=== PATIENT | male | born 1985 | race Caucasian/White ===

== ENCOUNTER 2021-03-29 14:18 | Emergency (ER) | payer MEDICAID ==
[2021-03-29] MEDS ORDERED: Sodium Chloride 0.9% 2.5 ML Syringe FLUSH PRN (14:34)
[2021-03-29] MEDS ORDERED: Ondansetron 4 MG/2 ML SDV IVPUSH ONE (14:34)
[2021-03-29] MEDS ORDERED: Sodium Chloride 0.9% 10 ML Syringe FLUSH PRN (14:34)
[2021-03-29] MEDS ORDERED: Sodium Chloride 0.9% 1,000 ML IV ONE ×2 (14:34→16:45)
--- NOTE | 2021-03-29 14:34 | EDM.PDOC ---
ED HPI GENERAL MEDICAL PROBLEM - General Chief Complaint: Diabetic Complaint Stated Complaint: HIGH BLOOD SUGAR Time Seen by Provider: 03/29/21 14:19 Source of Information: Reports: Patient History Limitations: Reports: No Limitations - History of Present Illness INITIAL COMMENTS - FREE TEXT/NARRATIVE: HISTORY AND PHYSICAL: History of present illness: Patient is a 35-year-old male who presents to the emergency room reporting his blood sugar is high. History of Type II Diabetes. Patient states yesterday he did not take his evening dose of Lantus, he forgot. He woke up with his blood sugar being elevated and did not take any correcting dose. He states he had a doctor's appointment at 10:15 with his primary care due to having chronic hip pain. They did do basic lab work today. He received a phone call this afternoon stating his blood sugar was 780. They recommended he come to the emergency room for evaluation. He has not had any insulin today, although states he does typically use insulin daily per sliding scale with meals. Patient states he has had generalized abdominal upset with mild nausea. He has had chronic hip pain over the past several months, has been seeing Dr. Branch and Dr. Byers for this. Currently on Lyrica for this pain. No new injury, trauma or falls. Denies any weakness or numbness of the extremity. Patient denies any fever, chills, headache, change in vision, syncope or near syncope. Denies any chest pain, back pain, shortness of breath or cough. Denies any vomiting, diarrhea, constipation or dysuria. Has not noted any blood in urine or stool. Patient has been eating and drinking appropriately. No recent travel or sick contacts. Review of systems: As per history of present illness and below otherwise all systems reviewed and negative. Past medical history: As per history of present illness and as reviewed below otherwise noncontributory. Surgical history: As per history of present illness and as reviewed below otherwise noncontributory. Social history: See social history for further information Family history: As per history of present illness and as reviewed below otherwise noncontributory. Physical exam: General: Well developed and well nourished. Alert and orientated x 3. Nontoxic in appearance and in no acute distress. Vital signs are stable and have been reviewed by me. Nursing notes were reviewed. HEENT: Atraumatic, normocephalic, pupils equal and reactive bilaterally, negative for conjunctival pallor or scleral icterus, mucous membranes moist, trachea midline. No drooling or trismus noted. No meningeal signs. No hot potato voice noted. Lungs: Clear to auscultation bilaterally. No wheezes, rales, or rhonchi. Chest nontender. Normal work of breathing, no accessory muscles used. Heart: S1S2, regular rate and rhythm without overt murmur, gallops, or rubs. No JVD. No peripheral edema Abdomen: Soft, nondistended, nontender. Normoactive bowel sounds. Negative for masses or costovertebral tenderness. Skin: Intact, warm, dry. No lesions or rashes noted. Hematologic: No petechiae or purpra. Mucosa appropriate color and normal nail bed color and refill. Extremities: Atraumatic, moves all extremities per self without difficulty or deficits, left hip pain with ROM and palpation/weight bearing. He is negative for cords or calf pain. Strong pedal pulses bilaterally. Neurovascular unr emarkable. Neuro: Awake, alert, oriented. Cranial nerves II through XII unremarkable. Cerebellum unremarkable. Motor and sensory unremarkable throughout. Exam nonfocal. Psychiatric: Mood and affect are appropriate. Normal thought process. Answering questions appropriately. Please note that the patient was seen and evaluated during the 2019 SARS-CoV-2 novel coronavirus pandemic period. Community viral transmission is ongoing at time of this encounter and the emergency department is operating under pandemic response procedures. Medical Decision Making: Patient states he has had labs done this morning at his appointment at [facility]. These lab results are not viewable. States his hip pain is chronic, denies any new injury, trauma or falls. Do not feel any need for imaging at this time. We will give him temporary pain management here. I will assess for DKA with repeat labs today. Patients blood sugar is elevated at 591, with anion gap of 17. Will have to correct blood glucose with insulin. I have talked with the patient about today's findings, in addition to providing specific details for plan of care. Reassessment at the time of disposition demonstrates that the patient is in no acute distress. He is requesting additional Morphine for his hip pain. Initially had spoke with Dr. Paiz about this patient. Patient is well and nontoxic appearing. We did discuss admission, although if the patient was admitted with an insulin drip he would have to be transferred as there is no beds available. We have called surrounding communities throughout the stay there are no beds available in [place], [place] or [place]. As mentioned previously he has no significant complaints and he had not taken his medication in the past 24 hours. Blood sugar has gone from 591 down to 4 oh with just 8 units of insulin subcu. Dr. Paiz does suggest repeating a BMP after giving the patient additional insulin and assessing if he actually needs to be admitted. Patient was made aware of this. Patient's anion gap is now 11. His last blood sugar was 376. We did discuss giving his Levemir here, we do have Lantus available. He would like to take this when he gets home. He is wanting pain medication for his left hip pain. He did see his primary care provider today for this, I do not feel comfortable adding to this regiment as he is currently on Lyrica and has been following with PCP. We did review all diagnostics and signs and symptoms that would prompt him to return to the emergency room. His vital signs are stable. Reevaluation shows no acute distress and he is stable for discharge. Diagnostics: CBC, CMP, Ketones, UA, COVID, blood glucose Therapeutics: NS, Insulin SubQ/Drip Impression: Mild DKA Left hip pain, acute on chronic Medication non-compliant Plan: 1. Today you have been evaluated on an emergent basis. You were given corrective insulin to help with your blood sugars. When you get home please take your long-acting insulin and monitor your blood sugars closely. Please do not forget to use your sliding scale intake the short acting insulin as you typically do. 2. Tylenol and/or ibuprofen as needed for pain management. Please follow with Dr. Byers at [facility] for your chronic hip pain. 3. If your symptoms should worsen or new symptoms develop your is welcome to return to the emergency room for reevaluation. Definitive disposition and diagnosis as appropriate pending reevaluation and review of above. Left Hip Pain Score (Numeric/FACES): 7 - Related Data Allergies Allergy/AdvReac Type Severity Reaction Status Date / Time No Known Allergies Allergy Verified 03/29/21 14:36 Home Meds: Home Meds Insulin Detemir [Levemir] 70 unit SUBCUT BEDTIME 03/29/21 [History] Pregabalin [Lyrica] 150 mg PO TID 03/29/21 [History] atorvaSTATin [Lipitor] 10 mg PO DAILY 03/29/21 [History] lisinopriL [Lisinopril] 5 mg PO DAILY 03/29/21 [History] ED ROS GENERAL - Review of Systems Review Of Systems: Comprehensive ROS is negative, except as noted in HPI. ED EXAM GENERAL NO PERIP PULSE - Physical Exam Exam: See Below (See dictation) Course - Vital Signs Last Recorded V/S: Last Vital Signs Temp 98.1 F 03/29/21 14:31 Pulse 108 H 03/29/21 17:43 Resp 16 03/29/21 17:43 BP 154/91 H 03/29/21 17:43 Pulse Ox 97 03/29/21 17:43 - Orders/Labs/Meds Orders: Active Orders 24 hr Category Date Time Status Blood Glucose Check, Bedside [RC] ONETIME Care 03/29/21 14:49 Active Glucose [Blood Glucose Check, Bedside] [RC] ONETIME Care 03/29/21 14:27 Active Glucose [Blood Glucose Check, Bedside] [RC] ONETIME Care 03/29/21 17:48 Active Dextrose 50% in Water Med 03/29/21 14:49 Active 50 ml IVPUSH ASDIRECTED PRN Dextrose 50% in Water Med 03/29/21 16:52 Active 50 ml IVPUSH ASDIRECTED PRN Glucagon,Human Recombinant [GlucaGen] Med 03/29/21 14:49 Active 1 mg IM ASDIRECTED PRN Glucagon,Human Recombinant [GlucaGen] Med 03/29/21 16:52 Active 1 mg IM ASDIRECTED PRN Sodium Chloride 0.9% [Normal Saline] 1,000 ml Med 03/29/21 16:45 Active IV .Bolus Sodium Chloride 0.9% [Saline Flush] Med 03/29/21 14:34 Active 10 ml FLUSH ASDIRECTED PRN Sodium Chloride 0.9% [Saline Flush] Med 03/29/21 14:34 Active 2.5 ml FLUSH ASDIRECTED PRN Saline Lock Insert [OM.PC] Stat Oth 03/29/21 14:34 Ordered Medication Orders Dextrose/Water (50% Dextrose In Water 50 Ml Syringe) 50 ml IVPUSH ASDIRECTED PRN PRN Reason: Hypoglycemia Dextrose/Water (50% Dextrose In Water 50 Ml Syringe) 50 ml IVPUSH ASDIRECTED PRN PRN Reason: Hypoglycemia Glucagon (Glucagon,Human Recombinant 1 Mg Vial) 1 mg IM ASDIRECTED PRN PRN Reason: Hypoglycemia Glucagon (Glucagon,Human Recombinant 1 Mg Vial) 1 mg IM ASDIRECTED PRN PRN Reason: Hypoglycemia Sodium Chloride (Normal Saline) 1,000 mls @ 250 mls/hr IV .Bolus ONE Stop: 03/29/21 20:44 Last Admin: 03/29/21 17:11 Dose: 250 mls/hr Documented by: ALIA Sodium Chloride (Sodium Chloride 0.9% 10 Ml Syringe) 10 ml FLUSH ASDIRECTED PRN PRN Reason: Keep Vein Open Last Admin: 03/29/21 14:39 Dose: 10 ml Documented by: ROSEANNE Sodium Chloride (Sodium Chloride 0.9% 2.5 Ml Syringe) 2.5 ml FLUSH ASDIRECTED PRN PRN Reason: Keep Vein Open Last Admin: 03/29/21 14:39 Dose: 2.5 ml Documented by: ROSEANNE Labs: Laboratory Tests 03/29/21 03/29/21 03/29/21 Range/Units 14:44 14:44 14:44 WBC 7.09 (4.0-11.0) K/uL RBC 5.35 (4.50-5.90) M/uL Hgb 16.5 (13.0-17.0) g/dL Hct 48.1 (38.0-50.0) % MCV 89.9 (80.0-98.0) fL MCH 30.8 (27.0-32.0) pg MCHC 34.3 (31.0-37.0) g/dL RDW Std Deviation 42.6 (28.0-62.0) fl RDW Coeff of Lilian 13 (11.0-15.0) % Plt Count 209 (150-400) K/uL MPV 11.80 (7.40-12.00) fL Neut % (Auto) 66.6 (48.0-80.0) % Lymph % (Auto) 25.0 (16.0-40.0) % [place] % (Auto) 6.6 (0.0-15.0) % Eos % (Auto) 1.4 (0.0-7.0) % Baso % (Auto) 0.4 (0.0-1.5) % Neut # (Auto) 4.7 (1.4-5.7) K/uL Lymph # (Auto) 1.8 (0.6-2.4) K/uL [place] # (Auto) 0.5 (0.0-0.8) K/uL Eos # (Auto) 0.1 (0.0-0.7) K/uL Baso # (Auto) 0.0 (0.0-0.1) K/uL Nucleated RBC % 0.0 /100WBC Nucleated RBCs # 0 K/uL VBG pH (7.31-7.41) VBG pCO2 (41-51) mmHG VBG pO2 mmHG VBG HCO3 (23-28) mEq/L VBG Total CO2 (24-29) mmol/L VBG Base Excess (-2.0-3.0) Sodium 134 L (136-148) mmol/L Potassium 5.0 (3.5-5.1) mmol/L Chloride 96 L (98-107) mmol/L Carbon Dioxide 20.3 L (21.0-32.0) mmol/L BUN 25 H (7.0-18.0) mg/dL Creatinine 1.3 (0.8-1.3) mg/dL Est Cr Clr Drug Dosing 83.67 mL/min Estimated GFR (MDRD) > 60.0 ml/min Glucose 591 H* (74-106) mg/dL POC Glucose (70-99) mg/dL Calcium 9.2 (8.5-10.1) mg/dL Total Bilirubin 0.3 (0.2-1.0) mg/dL AST 20 (15-37) IU/L ALT 40 (14-63) IU/L Alkaline Phosphatase 156 H (46-116) U/L Total Protein 7.8 (6.4-8.2) g/dL Albumin 3.6 (3.4-5.0) g/dL Globulin 4.2 H (2.6-4.0) g/dL Albumin/Globulin Ratio 0.9 (0.9-1.6) Lipase 214 (73-393) U/L Urine Color Urine Appearance Urine pH (5.0-8.0) Ur Specific Whick (1.001-1.035) Urine Protein (NEGATIVE) mg/dL Urine Glucose (UA) (NEGATIVE) mg/dL Urine Ketones (NEGATIVE) mg/dL Urine Occult Blood (NEGATIVE) Urine Nitrite (NEGATIVE) Urine Bilirubin (NEGATIVE) Urine Urobilinogen (<2.0) EU/dL Ur Leukocyte Esterase (NEGATIVE) Urine RBC (0-2/HPF) Urine WBC (0-5/HPF) Ur Epithelial Cells (NONE-FEW) Urine Bacteria (NEGATIVE) Ketones NEGATIVE (NEG) SARS-CoV-2 RNA (MILAGROS) (NEGATIVE) 03/29/21 03/29/21 03/29/21 Range/Units 14:44 14:53 15:12 WBC (4.0-11.0) K/uL RBC (4.50-5.90) M/uL Hgb (13.0-17.0) g/dL Hct (38.0-50.0) % MCV (80.0-98.0) fL MCH (27.0-32.0) pg MCHC (31.0-37.0) g/dL RDW Std Deviation (28.0-62.0) fl RDW Coeff of Lilian (11.0-15.0) % Plt Count (150-400) K/uL MPV (7.40-12.00) fL Neut % (Auto) (48.0-80.0) % Lymph % (Auto) (16.0-40.0) % [place] % (Auto) (0.0-15.0) % Eos % (Auto) (0.0-7.0) % Baso % (Auto) (0.0-1.5) % Neut # (Auto) (1.4-5.7) K/uL Lymph # (Auto) (0.6-2.4) K/uL [place] # (Auto) (0.0-0.8) K/uL Eos # (Auto) (0.0-0.7) K/uL Baso # (Auto) (0.0-0.1) K/uL Nucleated RBC % /100WBC Nucleated RBCs # K/uL VBG pH 7.40 (7.31-7.41) VBG pCO2 33 L (41-51) mmHG VBG pO2 58 mmHG VBG HCO3 21 L (23-28) mEq/L VBG Total CO2 18 L (24-29) mmol/L VBG Base Excess -3.4 L (-2.0-3.0) Sodium (136-148) mmol/L Potassium (3.5-5.1) mmol/L Chloride (98-107) mmol/L Carbon Dioxide (21.0-32.0) mmol/L BUN (7.0-18.0) mg/dL Creatinine (0.8-1.3) mg/dL Est Cr Clr Drug Dosing mL/min Estimated GFR (MDRD) ml/min Glucose (74-106) mg/dL POC Glucose (70-99) mg/dL Calcium (8.5-10.1) mg/dL Total Bilirubin (0.2-1.0) mg/dL AST (15-37) IU/L ALT (14-63) IU/L Alkaline Phosphatase (46-116) U/L Total Protein (6.4-8.2) g/dL Albumin (3.4-5.0) g/dL Globulin (2.6-4.0) g/dL Albumin/Globulin Ratio (0.9-1.6) Lipase (73-393) U/L Urine Color YELLOW Urine Appearance CLEAR Urine pH 6.0 (5.0-8.0) Ur Specific Whick 1.010 (1.001-1.035) Urine Protein NEGATIVE (NEGATIVE) mg/dL Urine Glucose (UA) >=1000 (NEGATIVE) mg/dL Urine Ketones NEGATIVE (NEGATIVE) mg/dL Urine Occult Blood NEGATIVE (NEGATIVE) Urine Nitrite NEGATIVE (NEGATIVE) Urine Bilirubin NEGATIVE (NEGATIVE) Urine Urobilinogen 0.2 (<2.0) EU/dL Ur Leukocyte Esterase NEGATIVE (NEGATIVE) Urine RBC 0-1 (0-2/HPF) Urine WBC 0-1 (0-5/HPF) Ur Epithelial Cells RARE (NONE-FEW) Urine Bacteria RARE (NEGATIVE) Ketones (NEG) SARS-CoV-2 RNA (MILAGROS) NEGATIVE (NEGATIVE) 03/29/21 03/29/21 03/29/21 Range/Units 16:45 17:46 18:30 WBC (4.0-11.0) K/uL RBC (4.50-5.90) M/uL Hgb (13.0-17.0) g/dL Hct (38.0-50.0) % MCV (80.0-98.0) fL MCH (27.0-32.0) pg MCHC (31.0-37.0) g/dL RDW Std Deviation (28.0-62.0) fl RDW Coeff of Lilian (11.0-15.0) % Plt Count (150-400) K/uL MPV (7.40-12.00) fL Neut % (Auto) (48.0-80.0) % Lymph % (Auto) (16.0-40.0) % [place] % (Auto) (0.0-15.0) % Eos % (Auto) (0.0-7.0) % Baso % (Auto) (0.0-1.5) % Neut # (Auto) (1.4-5.7) K/uL Lymph # (Auto) (0.6-2.4) K/uL [place] # (Auto) (0.0-0.8) K/uL Eos # (Auto) (0.0-0.7) K/uL Baso # (Auto) (0.0-0.1) K/uL Nucleated RBC % /100WBC Nucleated RBCs # K/uL VBG pH (7.31-7.41) VBG pCO2 (41-51) mmHG VBG pO2 mmHG VBG HCO3 (23-28) mEq/L VBG Total CO2 (24-29) mmol/L VBG Base Excess (-2.0-3.0) Sodium 136 (136-148) mmol/L Potassium 4.8 (3.5-5.1) mmol/L Chloride 101 (98-107) mmol/L Carbon Dioxide 23.4 (21.0-32.0) mmol/L BUN 25 H (7.0-18.0) mg/dL Creatinine 1.4 H (0.8-1.3) mg/dL Est Cr Clr Drug Dosing 77.69 mL/min Estimated GFR (MDRD) 57.3 ml/min Glucose 390 H (74-106) mg/dL POC Glucose 408 H* 376 H (70-99) mg/dL Calcium 8.4 L (8.5-10.1) mg/dL Total Bilirubin (0.2-1.0) mg/dL AST (15-37) IU/L ALT (14-63) IU/L Alkaline Phosphatase (46-116) U/L Total Protein (6.4-8.2) g/dL Albumin (3.4-5.0) g/dL Globulin (2.6-4.0) g/dL Albumin/Globulin Ratio (0.9-1.6) Lipase (73-393) U/L Urine Color Urine Appearance Urine pH (5.0-8.0) Ur Specific Whick (1.001-1.035) Urine Protein (NEGATIVE) mg/dL Urine Glucose (UA) (NEGATIVE) mg/dL Urine Ketones (NEGATIVE) mg/dL Urine Occult Blood (NEGATIVE) Urine Nitrite (NEGATIVE) Urine Bilirubin (NEGATIVE) Urine Urobilinogen (<2.0) EU/dL Ur Leukocyte Esterase (NEGATIVE) Urine RBC (0-2/HPF) Urine WBC (0-5/HPF) Ur Epithelial Cells (NONE-FEW) Urine Bacteria (NEGATIVE) Ketones (NEG) SARS-CoV-2 RNA (MILAGROS) (NEGATIVE) Meds: Medications Generic Name Dose Route Start Last Admin Trade Name Freq PRN Reason Stop Dose Admin Dextrose/Water 50 ml 03/29/21 14:49 50% Dextrose In Water 50 Ml Syringe IVPUSH ASDIRECTED PRN Hypoglycemia Dextrose/Water 50 ml 03/29/21 16:52 50% Dextrose In Water 50 Ml Syringe IVPUSH ASDIRECTED PRN Hypoglycemia Glucagon 1 mg 03/29/21 14:49 Glucagon,Human Recombinant 1 Mg Vial IM ASDIRECTED PRN Hypoglycemia Glucagon 1 mg 03/29/21 16:52 Glucagon,Human Recombinant 1 Mg Vial IM ASDIRECTED PRN Hypoglycemia Sodium Chloride 1,000 mls @ 250 mls/hr 03/29/21 16:45 03/29/21 17:11 Normal Saline IV 03/29/21 20:44 250 mls/hr .Bolus ONE Administration Sodium Chloride 10 ml 03/29/21 14:34 03/29/21 14:39 Sodium Chloride 0.9% 10 Ml Syringe FLUSH 10 ml ASDIRECTED PRN Administration Keep Vein Open Sodium Chloride 2.5 ml 03/29/21 14:34 03/29/21 14:39 Sodium Chloride 0.9% 2.5 Ml Syringe FLUSH 2.5 ml ASDIRECTED PRN Administration Keep Vein Open Discontinued Medications Generic Name Dose Route Start Last Admin Trade Name Freq PRN Reason Stop Dose Admin Sodium Chloride 1,000 mls @ 999 mls/hr 03/29/21 14:34 03/29/21 14:39 Normal Saline IV 03/29/21 15:34 999 mls/hr BOLUS ONE Administration Insulin Regular in 0.9 % NACL 100 mls @ 14.515 mls/hr 03/29/21 16:04 Myxredlin In Ns 100 Unit/100 Ml IV TITRATE NAVNEET Protocol 0.1 UNITS/KG/HR Insulin Human Regular 8 unit 03/29/21 14:49 03/29/21 15:02 Insulin Regular, Human 100 Units/Ml 10 Ml Vial SUBCUT 03/29/21 14:50 8 unit ONETIME ONE Administration Protocol Insulin Human Regular 5 unit 03/29/21 16:52 03/29/21 17:03 Insulin Regular, Human 100 Units/Ml 10 Ml Vial SUBCUT 03/29/21 16:53 5 units ONETIME ONE Administration Protocol Ketorolac Tromethamine 30 mg 03/29/21 16:53 03/29/21 17:04 Ketorolac 30 Mg/Ml Sdv IVPUSH 03/29/21 16:54 30 mg ONETIME ONE Administration Morphine Sulfate 4 mg 03/29/21 14:57 03/29/21 15:03 Morphine 4 Mg/Ml Syringe IVPUSH 03/29/21 14:58 4 mg ONETIME ONE Administration Ondansetron HCl 4 mg 03/29/21 14:34 03/29/21 15:00 Ondansetron 4 Mg/2 Ml Sdv IVPUSH 03/29/21 14:35 4 mg ONETIME ONE Administration Departure - Departure Time of Disposition: 19:08 Disposition: Home, Self-Care 01 Clinical Impression: Hyperglycemia, Hip pain, left, Noncompliance with medication regimen - Discharge Information Instructions: Hyperglycemia, [id number] Referrals: Flaca Perez DO [Primary Care Provider] - Forms: ED Department Discharge Additional Instructions: The following information is given to patients seen in the emergency department who are being discharged to home. This information is to outline your options for follow-up care. We provide all patients seen in our emergency department with a follow-up referral. The need for follow-up, as well as the timing and circumstances, are variable depending upon the specifics of your emergency department visit. If you don't have a primary care physician on staff, we will provide you with a referral. We always advise you to contact your personal physician following an emergency department visit to inform them of the circumstance of the visit and for follow-up with them and/or the need for any referrals to a consulting specialist. The emergency department will also refer you to a specialist when appropriate. This referral assures that you have the opportunity for follow-up care with a specialist. All of these measure are taken in an effort to provide you with optimal care, which includes your follow-up. Under all circumstances we always encourage you to contact your private physician who remains a resource for coordinating your care. When calling for follow-up care, please make the office aware that this follow-up is from your recent emergency room visit. If for any reason you are refused follow-up, please contact the [facility] Emergency Department at and asked to speak to the emergency department charge nurse. [facility] [address] [place] [id number] [place] [address] Thank you for choosing the [facility] emergency department in [place] for your medical needs today. It was a pleasure caring for you. Today you were seen in the emergency department for high blood sugar. 1. Today you have been evaluated on an emergent basis. You were given corrective insulin to help with your blood sugars. When you get home please take your long-acting insulin and monitor your blood sugars closely. Please do not forget to use your sliding scale intake the short acting insulin as you typically do. 2. Tylenol and/or ibuprofen as needed for pain management. Please follow with Dr. Byers at [facility] for your chronic hip pain. 3. If your symptoms should worsen or new symptoms develop your is welcome to return to the emergency room for reevaluation. Sepsis Event Note (ED) - Focused Exam Vital Signs: Vital Signs Temp Pulse Resp BP Pulse Ox 03/29/21 17:43 108 H 16 154/91 H 97 03/29/21 16:51 107 H 16 130/86 97 03/29/21 14:31 98.1 F 117 H 22 H 120/84 96 - My Orders Last 24 Hours: My Active Orders 03/29/21 14:27 Glucose [Blood Glucose Check, Bedside] [RC] ONETIME 03/29/21 14:34 Sodium Chloride 0.9% [Saline Flush] 10 ml FLUSH ASDIRECTED PRN Sodium Chloride 0.9% [Saline Flush] 2.5 ml FLUSH ASDIRECTED PRN Saline Lock Insert [OM.PC] Stat 03/29/21 14:49 Blood Glucose Check, Bedside [RC] ONETIME Dextrose 50% in Water 50 ml IVPUSH ASDIRECTED PRN Glucagon,Human Recombinant [GlucaGen] 1 mg IM ASDIRECTED PRN 03/29/21 16:45 Sodium Chloride 0.9% [Normal Saline] 1,000 ml IV .Bolus 03/29/21 16:52 Dextrose 50% in Water 50 ml IVPUSH ASDIRECTED PRN Glucagon,Human Recombinant [GlucaGen] 1 mg IM ASDIRECTED PRN 03/29/21 17:48 Glucose [Blood Glucose Check, Bedside] [RC] ONETIME - Assessment/Plan Last 24 Hours: My Active Orders 03/29/21 14:27 Glucose [Blood Glucose Check, Bedside] [RC] ONETIME 03/29/21 14:34 Sodium Chloride 0.9% [Saline Flush] 10 ml FLUSH ASDIRECTED PRN Sodium Chloride 0.9% [Saline Flush] 2.5 ml FLUSH ASDIRECTED PRN Saline Lock Insert [OM.PC] Stat 03/29/21 14:49 Blood Glucose Check, Bedside [RC] ONETIME Dextrose 50% in Water 50 ml IVPUSH ASDIRECTED PRN Glucagon,Human Recombinant [GlucaGen] 1 mg IM ASDIRECTED PRN 03/29/21 16:45 Sodium Chloride 0.9% [Normal Saline] 1,000 ml IV .Bolus 03/29/21 16:52 Dextrose 50% in Water 50 ml IVPUSH ASDIRECTED PRN Glucagon,Human Recombinant [GlucaGen] 1 mg IM ASDIRECTED PRN 03/29/21 17:48 Glucose [Blood Glucose Check, Bedside] [RC] ONETIME
[2021-03-29] MEDS ORDERED: 50% Dextrose in Water 50 ML Syringe IVPUSH PRN ×2 (14:49→16:52)
[2021-03-29] MEDS ORDERED: Glucagon,Human Recombinant 1 MG Vial IM PRN ×2 (14:49→16:52)
[2021-03-29] MEDS ORDERED: Insulin Regular, Human 100 Units/ML 10 ML Vial SUBCUT ONE ×2 (14:49→16:52)
[2021-03-29] MEDS ORDERED: Morphine 4 MG/ML Syringe IVPUSH ONE (14:57)
[2021-03-29 15:41] LABS: BLOOD UREA NITROGEN,BUN 25 mg/dL (7.0-18.0); CARBON DIOXIDE,CO2 20.3 mmol/L (21.0-32.0); CHLORIDE,CL 96 mmol/L (98-107); LIPASE 214 U/L (73-393); SODIUM,NA 134 mmol/L (136-148)
[2021-03-29 15:42] LABS: GLUCOSE RANDOM 591 mg/dL (74-106)
[2021-03-29] MEDS ORDERED: Insulin Regular in 0.9 % NACL 100 ML IV SCH (16:04)
[2021-03-29] MEDS ORDERED: Ketorolac 30 MG/ML SDV IVPUSH ONE (16:53)
--- NOTE | 2021-03-29 17:02 | PCM.EKG ---
#1 Interpretation EKG Date: 03/29/21 Time: 16:54 Rhythm: NSR Rate (Beats/Min): 75 [place]: Normal P-Wave: Present QRS: Normal ST-T: Normal QT: Normal Comparison: NA - No Prior EKG EKG Interpretation Comments: Sinus Rhythm
[2021-03-29 18:59] LABS: CARBON DIOXIDE,CO2 23.4 mmol/L (21.0-32.0); POTASSIUM,K 4.8 mmol/L (3.5-5.1)
== END 2021-03-29 19:22 | disposition home or self-care (01) ==
LOC: MW.ED 14:18
DX: E11.65 Type 2 diabetes mellitus with hyperglycemia (principal); E11.10 Type 2 diabetes mellitus with ketoacidosis without coma; M25.552 Pain in left hip; G89.29 Other chronic pain; Z91.14 Patient's other noncompliance with medication regimen; Z79.4 Long term (current) use of insulin; Z79.899 Other long term (current) drug therapy; Z20.822 Contact with and (suspected) exposure to COVID-19
CPT/HCPCS: 36415; 80048; 80053; 81001; 82009; 82803; 82947; 83690; 85025; 87635; 96374; 96375; 99284; J1815; J1885; J2270; J2405; J7030; U0002

== ENCOUNTER 2022-01-24 16:07 | Emergency (ER) | payer MEDICAID ==
[2022-01-24] MEDS ORDERED: oxyCODONE 5 MG Tab PO ONE (23:02)
[2022-01-24] MEDS ORDERED: Insulin Glargine,Hum.Rec.Anlog 100 UNIT/ML 3 ML Pen SUBCUT STA (23:03)
[2022-01-24 23:06] LABS: CARBON DIOXIDE,CO2 26.1 mmol/L (21.0-32.0); POTASSIUM,K 4.2 mmol/L (3.5-5.1)
[2022-01-25] MEDS ORDERED: Cephalexin 500 MG Cap PO STA (00:01)
[2022-01-25] MEDS ORDERED: Glucagon,Human Recombinant 1 MG Vial IM PRN (00:20)
[2022-01-25] MEDS ORDERED: Insulin Aspart 100 Units/ML 3 ML Pen SUBCUT STA (00:20)
[2022-01-25] MEDS ORDERED: 50% Dextrose in Water 50 ML Syringe IVPUSH PRN (00:20)
== END 2022-01-25 00:45 | disposition home or self-care (01) ==
LOC: MW.ED 16:07
DX: E11.621 Type 2 diabetes mellitus with foot ulcer (principal); L97.529 Non-pressure chronic ulcer of other part of left foot with unspecified severity; I10 Essential (primary) hypertension; E11.40 Type 2 diabetes mellitus with diabetic neuropathy, unspecified; E78.00 Pure hypercholesterolemia, unspecified; Z79.899 Other long term (current) drug therapy; Z79.4 Long term (current) use of insulin
CPT/HCPCS: 36415; 73630; 80053; 83605; 85025; 85610; 85652; 86140; 87070; 87075; 87077; 87186; 87205; 93005; 99283; A9270; J1815; 93010

== ENCOUNTER 2022-02-16 13:53 | Emergency (ER) | payer MEDICAID | END 2022-02-16 16:43 | disposition EXP | LOC: MW.ED 13:53 | DX: I46.9 Cardiac arrest, cause unspecified (principal); I10 Essential (primary) hypertension; E11.9 Type 2 diabetes mellitus without complications; Z79.899 Other long term (current) drug therapy; Z79.4 Long term (current) use of insulin | CPT/HCPCS: 92950; 99285-25 ==